=== PATIENT | female | born 1990 | race Hispanic/Latino ===

== ENCOUNTER 2020-04-29 12:27 | Outpatient (CLI) ==
--- NOTE | 2020-04-29 13:36 | RAD ---
PA AND LATERAL VIEWS OF THE CHEST 04/29/20 HISTORY: Cough. COVID positive. FINDINGS: The cardiomediastinum is normal. There are no focal areas of consolidation, pneumothoraces or pleural effusions are seen. No acute osseous abnormalities are identified. IMPRESSION: No radiographic evidence of acute cardiopulmonary process. Plain radiographs can be falsely negative in the setting of viral pneumonias. POS: [facility]
== END 2020-04-29 12:28 | disposition home or self-care (01) ==
LOC: SCSRAD 12:27
PROVIDERS: ATTEND Nurse Practitioner Family
DX: U07.1 COVID-19 (principal)
CPT/HCPCS: 71046